=== PATIENT | female | born 1960 | race Caucasian/White ===

== ENCOUNTER 2016-11-07 17:35 | Emergency (ER) | payer BC | END 2016-11-07 19:28 | disposition home or self-care (01) | LOC: ER 17:35 | DX: S70.12XA Contusion of left thigh, initial encounter (principal); Z90.49 Acquired absence of other specified parts of digestive tract; W01.0XXA Fall on same level from slipping, tripping and stumbling without subsequent striking against object, initial encounter; Y92.009 Unspecified place in unspecified non-institutional (private) residence as the place of occurrence of the external cause | CPT/HCPCS: 73502-LT ==